=== PATIENT | male | born 1950 | race Caucasian/White ===

== ENCOUNTER 2018-06-20 00:13 | Outpatient (CLI) | payer MEDICARE, OTHER ==
[2018-06-20 14:19] LABS: #Basophils 0.1 thou/uL (0.0-0.2); #Eosinphils 0.3 thou/uL (0.0-0.7); #Lymphocytes 2.5 thou/uL (1.20-3.40); #Monocytes 0.6 thou/uL (0.11-0.59); #Neutrophils 3.8 thou/uL (1.40-6.50); %Basophils 1.3 % (0.0-1.0); %Eosinophils 3.7 % (0.0-10.0); %Lymphocytes 34.4 % (21.0-51.0); %Monocytes 8.5 % (0.0-10.0); %Neutrophils 52.1 % (42.0-75.0); Hemoglobin 15.2 g/dL (14.0-18.0); Mean Corpuscular HGB CONC 33.3 g/dL (32.0-36.0); Mean Corpuscular Hemoglobin 31.5 pg (27.0-31.0); Mean Corpuscular Volume 94.6 fL (78.0-98.0); Mean Platelet Volume 8.6 fL (7.4-10.4); Platelet Count 204 thou/uL (130-400); RBC Distribution Width 12.4 % (11.5-14.5); Red Blood Cell (RBC) Count 4.82 mill/uL (4.70-6.10); White Blood Cell (WBC) Count 7.2 thou/uL (4.8-10.8)
[2018-06-20 14:23] LABS: Bilirubin Negative (Negative); Blood, Urine Negative (Negative); Clarity CLEAR (Clear); Glucose, Urine (Dipstick) Negative (Negative); Leukocyte Negative (Negative); Nitrite Negative (Negative); Protein, Urine (Dipstick) Negative (Neg-Trace); Specific Gravity, Urine 1.016 (1.002-1.036)
[2018-06-20 14:25] LABS: PTT 29.2 SEC (22.9-36.1); Prothrombin Time 13.5 SEC (12.0-14.7)
[2018-06-20 14:26] LABS: Bacteria/HPF None Seen HPF (None Seen); Hyaline Casts/LPF 0-3 HYALINE CAST LPF (0-3 Hyaline); Squamous Epithelial 0-3 HPF (0-3); WBC/HPF None Seen HPF (0-3)
[2018-06-20 14:40] LABS: Anion Gap 14 mmol/L (10-20); BUN (Urea Nitrogen) 13 mg/dL (8.4-25.7); Calc. Creatinine Clearance 0 mL/min (70-130); Calcium 9.8 mg/dL (7.8-10.44); Carbon Dioxide 25 mmol/L (23-31); Chloride 104 mmol/L (98-107); Estimated GFR-MDRD 74; Glucose 73 mg/dL (80-115); Potassium 4.1 mmol/L (3.5-5.1); Sodium 139 mmol/L (136-145)
== END 2018-06-20 00:14 | disposition home or self-care (01) ==
LOC: LABBT 00:13
PROVIDERS: ATTEND Orthopaedic Surgery
DX: Z01.818 Encounter for other preprocedural examination (principal); M17.11 Unilateral primary osteoarthritis, right knee
CPT/HCPCS: 80048; 81001; 85025; 85610; 85730; 87081; 93005; 93010

== ENCOUNTER 2018-06-28 08:17 | Outpatient (CLI) | payer MEDICARE, OTHER | END 2018-06-28 08:18 | disposition home or self-care (01) | LOC: LABBT 08:17 | PROVIDERS: ATTEND Orthopaedic Surgery | DX: Z01.812 Encounter for preprocedural laboratory examination (principal); M17.11 Unilateral primary osteoarthritis, right knee | CPT/HCPCS: 86850; 86900; 86901 ==

== ENCOUNTER 2018-07-01 05:27 | Inpatient (IN) | payer MEDICARE, OTHER ==
[2018-06-20 12:43] VITALS: BMI 39.5
--- NOTE | 2018-06-27 08:45 | HP ---
HISTORY OF PRESENT ILLNESS: The patient is a 68-year-old male with a long history of progressive degenerative arthritis of the right knee. No history of injury. He has had progressive symptoms despite rest, restriction of activities, anti-inflammatory medications, and previous cortisone injections. His pain is now interfering with walking, getting dressed, and sleeping. He has had previous left total knee replacement 3 years ago by me with good results. PAST MEDICAL HISTORY: The patient is otherwise in good health. He has a history of seasonal allergies, hypertension, and hyperlipidemia. He had recently infected insect bite on his left leg, which resolved with antibiotics. CURRENT MEDICATIONS: Include Lipitor, lisinopril, and low-dose aspirin. ALLERGIES: HE HAS NO KNOWN ALLERGIES. FAMILY HISTORY: Otherwise unremarkable. SOCIAL HISTORY: Otherwise unremarkable. REVIEW OF SYSTEMS: Otherwise unremarkable. PHYSICAL EXAMINATION: GENERAL: This is a healthy, heavyset male. HEENT: Unremarkable. NECK: Supple. CHEST: Clear. HEART: Regular rate and rhythm. ABDOMEN: Soft and nontender. RECTAL: Deferred. GENITAL: Deferred. EXTREMITIES: Pertinent findings are related to the right knee. There is no effusion. There is moderate varus deformity. There is tenderness and crepitus over the medial joint line. Range of motion is 5 to 120 degrees. There is a right antalgic gait. There is no instability. NEUROVASCULAR: Intact with palpable distal pulses. DIAGNOSTIC STUDIES: X-rays of the right knee reveal [id number] collapse medially with progression from previous x-rays. IMPRESSION: 1. Degenerative arthritis, right knee. 2. Status post left total knee replacement. 3. History of hypertension. PLAN: Right total knee replacement. The nature of the surgery, length, recovery and potential complications such as infection, loss of motion, incomplete relief , delayed wound healing, neurovascular injury, thromboembolic phenomena, possible transfusion, and need for revision have been discussed in detail. Job ID: [id number] [facility]
[2018-07-01] MEDS ORDERED: Sodium Chloride 0.9% 100 ML ONE (06:26)
[2018-07-01] MEDS ORDERED: Tranexamic Acid 1,000 MG/10 ML VIAL ONE ×2 (06:26→09:24)
[2018-07-01] MEDS ORDERED: Fentanyl 100 MCG/2 ML VIAL ONE ×3 (06:29→09:41)
[2018-07-01] MEDS ORDERED: Midazolam HCl 2 mg/2 ml Vial ONE (06:29)
[2018-07-01] MEDS ORDERED: Bupivacaine/Epinephrine 0.25% 30 ML VIAL ONE (06:30)
[2018-07-01] MEDS ORDERED: Lidocaine 1% w/Epinephrine 1:100K 20 ML VIAL ONE (06:30)
[2018-07-01] MEDS ORDERED: Promethazine HCl 25 MG/ML VIAL IM PRN ×2 (07:08→09:09)
[2018-07-01] MEDS ORDERED: traMADol HCl 50 MG TAB PO PRN ×3 (07:08→10:34)
[2018-07-01] MEDS ORDERED: Zolpidem Tartrate 5 MG TAB PO PRN ×2 (07:08→10:34)
[2018-07-01] MEDS ORDERED: Ondansetron PF 4 MG/2 ML Vial IVP PRN ×2 (07:08→10:34)
[2018-07-01] MEDS ORDERED: Promethazine HCl 25 MG/ML VIAL SLOW IVP PRN ×2 (09:09→10:34)
[2018-07-01] MEDS ORDERED: Ondansetron HCl/PF 4 MG/2 ML Vial IVP PRN (09:09)
[2018-07-01] MEDS ORDERED: Tranexamic Acid 1,000 MG in Sodium Chloride 0.9% 100 ML IVPB SCH ×2 (09:15→10:34)
[2018-07-01] MEDS ORDERED: Acetaminophen 325 MG TAB PO PRN (10:34)
[2018-07-01] MEDS ORDERED: Fentanyl 100 MCG/2 ML VIAL SLOW IVP PRN ×2 (10:34)
[2018-07-01] MEDS ORDERED: Atorvastatin Calcium 10 MG TAB PO SCH ×2 (10:34→10:45)
[2018-07-01] MEDS ORDERED: HYDROcodone/Acetaminophen 10/325 mg Tablet PO PRN ×2 (10:34)
[2018-07-01] MEDS ORDERED: Aspirin 81 mg Enteric Coated Tablet PO SCH ×2 (10:34→10:45)
[2018-07-01] MEDS ORDERED: diphenhydrAMINE 25 MG CAP PO PRN (10:34)
[2018-07-01] MEDS: HYDROcodone/Acetaminophen 10/325 mg Tablet PO PRN (10:59)
--- NOTE | 2018-07-01 11:35 | RAD ---
RIGHT KNEE 2 VIEWS: Date: 07/01/18 INDICATION: Postop. COMPARISON: None. FINDINGS: There is a right total knee prosthesis that projects in expected position. There is scattered interar ticular and periarticular soft tissue gas consistent with the patient's recent postoperative state. P rosthetic components project in the expected position. Enthesopathic change is seen off the posterior aspect of the proximal foreleg. IMPRESSION: Postoperative right knee. POS: C
[2018-07-01] MEDS ORDERED: Ketorolac Tromethamine 30 MG/ML VIAL IVP SCH (12:00)
[2018-07-01] MEDS: Senokot S 8.6-50 MG TAB PO SCH ×2 (12:39→22:29)
[2018-07-01] MEDS: Multivitamin W/ Minerals 1 TAB PO SCH (12:39)
[2018-07-01] MEDS: Ketorolac Tromethamine 30 MG/ML VIAL IVP SCH ×2 (12:42→17:30)
[2018-07-01] MEDS: Sodium Chloride 0.9% 1,000 ML IV SCH ×2 (12:48→23:29)
[2018-07-01] MEDS: Lisinopril 20 MG TAB PO SCH (12:49)
--- NOTE | 2018-07-01 15:51 | OP ---
DATE OF PROCEDURE: 07/01/2018 GEAR CUTTER: Norman GRAFF. ANESTHESIA: General plus adductor canal and sciatic nerve blocks. PREOPERATIVE DIAGNOSIS: Degenerative arthritis, right knee. POSTOPERATIVE DIAGNOSIS: Degenerative arthritis, right knee. PROCEDURE PERFORMED: Right total knee replacement with computer-assisted navigation using cemented [place] triathlon components (#6 femoral component, #6 primary tibial base plate with 9 mm CS plastic insert, and A35 all plastic patellar component). DESCRIPTION OF PROCEDURE: After satisfactory anesthesia was induced in supine position, sequential compression device was placed on the nonoperative leg throughout the procedure. The right leg was then prepped and draped in routine manner. The right leg was elevated and exsanguinated with an Esmarch bandage, and the tourniquet inflated to 300 mmHg. A gently curved medial parapatellar incision was made, carried down through subcutaneous tissues and bleeding points controlled with Bovie cautery. Medial parapatellar arthrotomy was performed of the patella, this was carried laterally and portions of the fat pad were excised for exposure. There was marked tricompartmental degenerative arthritis of the knee, especially medially with large areas of exposed bone. Meniscal remnants and osteophytes were removed. Using the [employer] pinless navigation system and the appropriate guides, the distal femoral and proximal tibial articular surfaces were excised with an oscillating saw to accept the trial components. It was felt that #6 femoral component and #6 tibial base plate with 9 mm CS plastic insert give appropriate size, fit, stability, and correction of the preoperative deformity. The patellar articular surface was excised to accept all plastic A35 patellar component. There was good range of motion and good patellar tracking. The trial components were removed. The knee was copiously irrigated with pulsatile lavage and the bony surfaces thoroughly cleaned and dried. The permanent components were then cemented in a single stage using one package of cement premixed with 1 g of tobramycin powder. Excess cement was removed. There was a good fit and stability of the components. The knee was again copiously irrigated. The medial retinaculum and quadriceps mechanism were closed with interrupted #2 Vicryl and a running #2 Quill. The skin was infiltrated with 30 mL of 0.25% Marcaine with epinephrine. Subcutaneous tissues were closed with running subcuticular 0 Quill suture, and the skin was closed with a running subcuticular 3-0 Monoderm and SurgiSeal skin adhesive. A sterile bulky compressive dressing was applied. The tourniquet deflated after 82 minutes. The foot promptly pinked up, and a sequential compression device was placed on his operated leg. He was awakened, taken to recovery room in stable condition. There were no apparent intraoperative complications. The estimated blood loss was less than 100 mL. Job ID: [id number]
[2018-07-01] MEDS ORDERED: Ropivacaine 0.5% HCl/PF (150 MG/30 ML VIAL) ONE (16:20)
[2018-07-01] MEDS ORDERED: Ropivacaine 0.2% HCl/PF (40 MG/20 ML VIAL) ONE (16:20)
[2018-07-01] MEDS ORDERED: Ondansetron PF 4 MG/2 ML Vial ONE (16:53)
[2018-07-01] MEDS ORDERED: Dexamethasone 20 MG/5 ML VIAL ONE (16:53)
[2018-07-01] MEDS ORDERED: PROPOFOL 200 MG/20 ML VIAL ONE (16:53)
[2018-07-01] MEDS ORDERED: Ketorolac Tromethamine 30 MG/ML VIAL ONE (16:53)
[2018-07-01] MEDS: CEFAZOLIN 2 GM in Premix Bag 1 BAG IVPB SCH ×2 (17:30→23:20)
--- NOTE | 2018-07-01 18:55 | PDOC.PN ---
- Subjective Encounter Start Date: 07/01/18 Encounter Start Time: 14:00 Patient seen and examined for medical mngt. Pain controlled. No fever/chills. No CP/SOB/palpitations. No new complaints. No overnight events - Objective MAR Reviewed: Yes Vital Signs & Weight: Vital Signs (12 hours) Temp Pulse Resp BP BP Pulse Ox 07/01/18 12:49 106/64 07/01/18 12:00 99 07/01/18 10:25 97.7 F 63 20 162/75 H 99 Weight Weight 300 lb EKG Reviewed by me: Yes (SR, Incomplete RBBB,) Phys Exam - Physical Examination Constitutional: NAD Respiratory: no wheezing, no rales, no rhonchi, clear to auscultation bilateral Cardiovascular: RRR, no rub no heaves/pulsations Gastrointestinal: soft, non-tender, no distention, positive bowel sounds Musculoskeletal: no edema Neurological: moves all 4 limbs Psychiatric: A&O x 3 Dx/Plan - Plan DVT proph w/SCDs IMPRESSION: HTN HLD Obesity BMI 39.6 ?AUDREY - Sleep study as outpt CKD 2 PLAN: Cont Lisinopril Cont Statins Pain control per Primary team Add PRN meds Full code. DPAO - spouse Will follow. Thank you for this consultation Laboratory Tests 06/20/18 06/20/18 13:50 13:50 Hgb 15.2 Hct 45.6 BUN 13 Creatinine 1.00 Review of Systems - Review of Systems Respiratory: negative: Cough, Dry, Shortness of Breath, Hemoptysis, SOB with Excertion, Pleuritic Pain, Sputum, Wheezing Cardiovascular: negative: chest pain, palpitations, orthopnea, paroxysmal nocturnal dyspnea, edema, light headedness, other Gastrointestinal: negative: Nausea, Vomiting, Abdominal Pain, Diarrhea, Constipation, Melena, Hematochezia, Other - Medications/Allergies Allergies/Adverse Reactions: Allergies Allergy/AdvReac Type Severity Reaction Status Date / Time No Known Allergies Allergy Verified 06/20/18 12:43 Medications: Current Medications Acetaminophen (Tylenol) 650 mg PO Q4H PRN PRN Reason: Headache/Fever or Pain Hydrocodone Bitart/Acetaminophen (Gardena 10/325) 1 tab PO Q4H PRN PRN Reason: Pain (1-3) Last Admin: 07/01/18 10:59 Dose: 1 tab Hydrocodone Bitart/Acetaminophen (Gardena 10/325) 2 tab PO Q4H PRN PRN Reason: PAIN (4-6) Aspirin (Ecotrin) 81 mg PO BID [facility] Atorvastatin Calcium (Lipitor) 10 mg PO DAILY [facility] Diphenhydramine HCl (Benadryl) 25 mg PO Q6H PRN PRN Reason: Itching Fentanyl (Sublimaze) 50 mcg IV Q1H PRN PRN Reason: BREAKTHROUGH PAIN Ropivacaine 250 ml/ Device 250 mls @ 0 mls/hr NERVE BLCK INF [facility] Tranexamic Acid 1,000 mg/ (Sodium Chloride) 110 mls @ 200 mls/hr IVPB ONE [facility] Stop: 07/01/18 21:00 Cefazolin Sodium/Dextrose 2 gm (/ Device) 50 mls @ 100 mls/hr IVPB Q8HR [facility] Stop: 07/01/18 22:29 Last Admin: 07/01/18 17:30 Dose: 50 mls Sodium Chloride (Normal Saline 0.9%) 1,000 mls @ 100 mls/hr IV .Q10H [facility] Last Admin: 07/01/18 12:48 Dose: 1,000 mls Iron/Minerals/Multivitamins (Theragran M) 1 tab PO DAILY [facility] Last Admin: 07/01/18 12:39 Dose: Not Given Ketorolac Tromethamine (Toradol) 15 mg IVP Q6HR [facility] Stop: 07/03/18 06:01 Last Admin: 07/01/18 17:30 Dose: 15 mg Lisinopril (Zestril) 20 mg PO QAM [facility] Last Admin: 07/01/18 12:49 Dose: Not Given Ondansetron HCl (Zofran) 4 mg IVP Q6H PRN PRN Reason: Nausea/Vomiting Promethazine HCl (Phenergan) 12.5 mg IM Q4H PRN PRN Reason: Nausea Promethazine HCl (Phenergan) 12.5 mg SLOW IVP Q4H PRN PRN Reason: Nausea/Vomiting Senna/Docusate Sodium (Senokot S) 2 tab PO BID [facility] Last Admin: 07/01/18 12:39 Dose: Not Given Sodium Chloride (Flush - Normal Saline) 10 ml IVF PRN PRN PRN Reason: Saline Flush Tramadol HCl (Ultram) 50 mg PO Q6H PRN PRN Reason: Mild Pain (1-3) Tramadol HCl (Ultram) 100 mg PO Q6H PRN PRN Reason: Moderate Pain 4-6 Zolpidem Tartrate (Ambien) 5 mg PO HSPRN PRN PRN Reason: Insomnia
[2018-07-01] MEDS ORDERED: Polyethylene Glycol 3350 17 GM Packet PO PRN (19:02)
[2018-07-01] MEDS ORDERED: hydrALAZINE 20 MG/ML VIAL SLOW IVP PRN (19:02)
[2018-07-01] MEDS: Aspirin 81 mg Enteric Coated Tablet PO SCH (22:29)
[2018-07-01] MEDS: Ropivacaine HCl/PF 250 ML in Premix Bag 1 BAG NERVE BLCK SCH (23:20)
[2018-07-02] MEDS: Ketorolac Tromethamine 30 MG/ML VIAL IVP SCH ×4 (00:40→17:39)
[2018-07-02] MEDS: HYDROcodone/Acetaminophen 10/325 mg Tablet PO PRN ×5 (00:46→21:32)
[2018-07-02 05:39] LABS: Hemoglobin 13.3 g/dL (14.0-18.0); Mean Corpuscular HGB CONC 32.6 g/dL (32.0-36.0); Mean Corpuscular Hemoglobin 30.7 pg (27.0-31.0); Mean Corpuscular Volume 94.1 fL (78.0-98.0); Mean Platelet Volume 8.4 fL (7.4-10.4); Platelet Count 196 thou/uL (130-400); RBC Distribution Width 12.4 % (11.5-14.5); Red Blood Cell (RBC) Count 4.36 mill/uL (4.70-6.10); White Blood Cell (WBC) Count 11.7 thou/uL (4.8-10.8)
[2018-07-02] MEDS: Sodium Chloride 0.9% 1,000 ML IV SCH ×2 (06:52→17:41)
[2018-07-02] MEDS: Fentanyl 100 MCG/2 ML VIAL IV PRN ×2 (08:13→11:30)
[2018-07-02] MEDS: Lisinopril 20 MG TAB PO SCH (08:19)
[2018-07-02] MEDS: Multivitamin W/ Minerals 1 TAB PO SCH (08:20)
[2018-07-02] MEDS: Senokot S 8.6-50 MG TAB PO SCH ×2 (08:20→21:31)
[2018-07-02] MEDS: Aspirin 81 mg Enteric Coated Tablet PO SCH ×2 (08:20→21:33)
[2018-07-02] MEDS ORDERED: Atorvastatin Calcium 10 MG TAB PO SCH ×2 (09:00→21:00)
[2018-07-03] MEDS: Ketorolac Tromethamine 30 MG/ML VIAL IVP SCH ×2 (00:42→06:44)
[2018-07-03] MEDS: Ropivacaine HCl/PF 250 ML in Premix Bag 1 BAG NERVE BLCK SCH (02:58)
[2018-07-03] MEDS: Sodium Chloride 0.9% 1,000 ML IV SCH (04:45)
[2018-07-03] MEDS: Senokot S 8.6-50 MG TAB PO SCH (08:43)
[2018-07-03] MEDS: Lisinopril 20 MG TAB PO SCH (08:43)
[2018-07-03] MEDS: Aspirin 81 mg Enteric Coated Tablet PO SCH (08:43)
[2018-07-03] MEDS: Multivitamin W/ Minerals 1 TAB PO SCH (08:45)
[2018-07-03] MEDS: HYDROcodone/Acetaminophen 10/325 mg Tablet PO PRN ×2 (08:46→13:26)
[2018-07-03 12:05] VITALS: BP 121/74; TEMP 98.4
[2018-07-03] MEDS ORDERED: Loratadine 10 MG TAB PO SCH (13:00)
== END 2018-07-03 13:44 | disposition home or self-care (01) | DRG 470 ==
LOC: SDC 05:27 → SJJU 07:02
PROVIDERS: ADMIT Orthopaedic Surgery; ATTEND Orthopaedic Surgery
PROC: 0SRC0J9 Replacement of Right Knee Joint with Synthetic Substitute, Cemented, Open Approach (ICD-10-PCS; principal; 2018-07-01)
DX: M17.11 Unilateral primary osteoarthritis, right knee (principal); E78.5 Hyperlipidemia, unspecified; J30.2 Other seasonal allergic rhinitis; I12.9 Hypertensive chronic kidney disease with stage 1 through stage 4 chronic kidney disease, or unspecified chronic kidney disease; N18.2 Chronic kidney disease, stage 2 (mild); G47.33 Obstructive sleep apnea (adult) (pediatric); E66.9 Obesity, unspecified; Z96.652 Presence of left artificial knee joint; Z79.899 Other long term (current) drug therapy; Z68.39 Body mass index [BMI] 39.0-39.9, adult
CPT/HCPCS: 36415; 85027; 86850; 86900; 86901; C1713; C1776; J0690; J1885; J2001; J2250; J2795; J3010; J3370; J3490; J7050

== ENCOUNTER 2024-12-08 13:58 | Outpatient (CLI) | payer MEDICARE, BC | END 2024-12-08 13:59 | disposition home or self-care (01) | LOC: BICRAD 13:58 | PROVIDERS: ATTEND Family Medicine | DX: M54.9 Dorsalgia, unspecified (principal) | CPT/HCPCS: 72070 ==